=== PATIENT | female | born 1985 | race Caucasian/White ===

== ENCOUNTER 2016-09-24 12:45 | Emergency (ER) | payer BC ==
[2016-09-24] MEDS ORDERED: TETANUS/DIPHTHERIA/PERTUSSIS 0.5 ML SYRINGE IM ONE ×2 (12:53→13:08)
== END 2016-09-24 14:00 | disposition home or self-care (01) ==
DX: S91.331A Puncture wound without foreign body, right foot, initial encounter (principal); W22.8XXA Striking against or struck by other objects, initial encounter; Y92.828 Other wilderness area as the place of occurrence of the external cause; Z23 Encounter for immunization; R03.0 Elevated blood-pressure reading, without diagnosis of hypertension

== ENCOUNTER 2018-03-10 08:47 | Outpatient (CLI) | payer BC, OTHER | END 2018-03-10 08:48 | disposition home or self-care (01) | LOC: LAB.R 08:47 | PROVIDERS: ATTEND Family Medicine | DX: N39.0 Urinary tract infection, site not specified (principal) | CPT/HCPCS: 87086; 87181 ==

== ENCOUNTER 2019-02-01 08:00 | Outpatient (CLI) | payer BC | END 2019-02-01 23:59 | disposition home or self-care (01) | LOC: LAB.R 08:00 | PROVIDERS: ATTEND Family Medicine | DX: N39.0 Urinary tract infection, site not specified (principal) | CPT/HCPCS: 87077; 87086; 87181 ==

== ENCOUNTER 2019-02-10 09:03 | Outpatient (CLI) | payer BC ==
--- NOTE | 2019-02-13 19:01 | Ultrasound Report ---
Reason: UTI'S RECURRENT Procedure Date: 02/10/2019 Accession Number: [id number] / [id number] Procedure: US - Retroperitoneal CPT Code: FULL RESULT: EXAM: RENAL ULTRASOUND EXAM DATE: 02/10/2019 09:56 AM. CLINICAL HISTORY: Recurrent UTIs, one episode of pyelonephritis. COMPARISON: None. TECHNIQUE: Real-time scanning was performed with static images obtained. FINDINGS: Right Kidney: 10.2 x 6.2 x 5.4 cm. No hydronephrosis or shadowing stones. Grossly unremarkable parenchymal echogenicity and cortical thickness. No focal lesion identified. No perinephric fluid. Left Kidney: 10.3 x 7.3 x 5.4 cm. No hydronephrosis or shadowing stones. Grossly unremarkable parenchymal echogenicity and cortical thickness. No focal lesion identified. No perinephric fluid. Bladder: Grossly smooth contour. Bilateral jets seen. The prevoid bladder volume was 729 cc. The postvoid bladder volume was 60 cc after the second voiding attempt. IMPRESSION: 1. Unremarkable renal sonogram. 2. Capacious bladder with postvoid residual of 60 cc after 2 voiding attempts. No focal bladder lesion identified. RADIA
== END 2019-02-10 09:04 | disposition home or self-care (01) ==
LOC: DI 09:03
PROVIDERS: ATTEND Family Medicine
DX: N39.0 Urinary tract infection, site not specified (principal)
CPT/HCPCS: 76770

== ENCOUNTER 2019-02-21 09:51 | Outpatient (CLI) | payer BC ==
[2019-02-21 17:24] LABS: BASOPHILS % (AUTO) 0.5 %; EOSINOPHILS # (AUTO) 0.1 10^3/uL (0.0-0.7); EOSINOPHILS % (AUTO) 1.6 %; HGB - HEMOGLOBIN 14.2 g/dL (12.0-16.0); LYMPHOCYTES % (AUTO) 31.4 %; MEAN CORPUSCULAR HEMOGLOBIN 30.9 pg (27.0-31.0); MEAN CORPUSCULAR HGB CONC 32.1 g/dL (32.0-36.0); MEAN CORPUSCULAR VOLUME 96.3 fL (81.0-99.0); MEAN PLATELET VOLUME 10.6 fL (7.9-10.8); MONOCYTES # (AUTO) 0.6 10^3/uL (0.0-1.0); NEUTROPHILS # (AUTO) 3.6 10^3/uL (1.5-6.6); NEUTROPHILS % (AUTO) 56.2 %; PLT - PLATELET COUNT 318 10^3/uL (130-450); RED CELL DISTRIBUTION WIDTH 12.7 % (12.0-15.0); WHITE BLOOD COUNT 6.4 x10^3/uL (4.8-10.8)
[2019-02-21 17:26] LABS: BILIRUBIN,URINE NEGATIVE (NEGATIVE); GLUCOSE, URINE (UA) NEGATIVE (NEGATIVE); KETONES,URINE (UA) NEGATIVE (NEGATIVE); LEUKOCYTE ESTERASE, URINE NEGATIVE (NEGATIVE); NITRITE,URINE NEGATIVE (NEGATIVE); OCCULT BLOOD,URINE NEGATIVE (NEGATIVE); PH,URINE 6.5 PH (5.0-7.5); PROTEIN,URINE NEGATIVE (NEGATIVE); UROBILINOGEN,URINE 0.2 (NORMAL) E.U./dL (NORMAL)
[2019-02-21 17:27] LABS: CLARITY,URINE CLEAR (CLEAR)
[2019-02-21 17:54] LABS: BACTERIA,URINE Rare /HPF (None Seen); RBC,URINE None Seen /HPF (0-5); SQUAMOUS EPITHELIAL CELL,UR MANY Squamous (<= Few)
[2019-02-21 18:02] LABS: ALBUMIN 4.7 g/dL (3.2-5.5); ALBUMIN/GLOBULIN RATIO 1.5 (1.0-2.2); BILIRUBIN,TOTAL 0.8 mg/dL (0.2-1.0); CALCIUM 9.5 mg/dL (8.5-10.3); CREATININE 0.6 mg/dL (0.4-1.0); TOTAL PROTEIN 7.8 g/dL (6.7-8.2)
== END 2019-02-21 09:52 | disposition home or self-care (01) ==
LOC: LAB.S 09:51
PROVIDERS: ATTEND Family Medicine
DX: N39.0 Urinary tract infection, site not specified (principal)
CPT/HCPCS: 36415; 80053; 81001; 85025; 87086

== ENCOUNTER 2020-01-27 13:28 | Outpatient (CLI) | payer BC | END 2020-01-27 13:29 | disposition home or self-care (01) | LOC: LAB.S 13:28 | PROVIDERS: ATTEND Obstetrics & Gynecology | DX: O99.351 Diseases of the nervous system complicating pregnancy, first trimester (principal); Z79.899 Other long term (current) drug therapy; Z32.01 Encounter for pregnancy test, result positive | CPT/HCPCS: 36415; 80177; 84144; 84702 ==

== ENCOUNTER 2020-02-10 14:36 | Outpatient (CLI) | payer BC ==
--- NOTE | 2020-02-10 17:41 | Ultrasound Report ---
PROCEDURE: OB First Trimester INDICATIONS: POSITIVE TEST OUTSIDE/PRIOR DATING DATA: Last menstrual period (LMP): 12/19/2019. LMP-based estimated date of delivery (JHON): 09/24/2020. First dating scan (date and location): 02/10/2020. Estimated date of delivery (JHON) from first dating scan: 09/25/2020. TECHNIQUE: Real-time scanning was performed of the fetus and maternal pelvic organs, with image documentation. COMPARISON: None for this FINDINGS: Embryo: There is an intrauterine gestational sac seen, with a pole present, which measures 1.2 cm, which corresponds to an estimated gestational age of 7 weeks 3 days. cardiac activity is s een, with a measured heart rate of 146 bpm. Subchronic hemorrhage can be seen superior to the gestati onal sac measuring 5 x 12 x 13 mm. Measurement variability in dating: +/- 4 weeks by LMP, +/- 7 days by mean sac diameter (use before 6 weeks gestation if crown-rump length not able to be measured), +/- 5 days by crown-rump length (6-12 weeks gestation). Maternal organs: Ovaries are within normal limits, with a left ovarian corpus luteum seen.. Limited images through the kidneys demonstrate no hydronephrosis. IMPRESSION: Single live intrauterine . No significant discrepancy is found between the estimated gestational age based upon these images and the estimated gestational age based upon the given date of the last menstrual period. Subchorionic hemorrhage can be seen adjacent to the gestational sac. Close clinical follow-up with serial beta hCG measurements are recommended, as clinically appropriate . Reviewed by: Larry Acosta MD on 02/10/2020 4:40 PM ABRAHAM Approved by: Larry Acosta MD on 02/10/2020 4:40 PM ABRAHAM Station ID: [id number]
== END 2020-02-10 14:37 | disposition home or self-care (01) ==
LOC: DI 14:36
PROVIDERS: ATTEND Obstetrics & Gynecology
DX: Z32.01 Encounter for pregnancy test, result positive (principal)
CPT/HCPCS: 76801

== ENCOUNTER 2020-02-27 08:00 | Outpatient (CLI) | payer BC ==
[2020-02-28 10:26] LABS: BILIRUBIN,URINE NEGATIVE (NEGATIVE); GLUCOSE, URINE (UA) NEGATIVE (NEGATIVE); KETONES,URINE (UA) TRACE mg/dL (NEGATIVE); LEUKOCYTE ESTERASE, URINE NEGATIVE (NEGATIVE); NITRITE,URINE NEGATIVE (NEGATIVE); OCCULT BLOOD,URINE NEGATIVE (NEGATIVE); PROTEIN,URINE NEGATIVE (NEGATIVE); UROBILINOGEN,URINE 0.2 (NORMAL) E.U./dL (NORMAL)
[2020-02-28 10:28] LABS: CLARITY,URINE SL. CLOUDY (CLEAR)
[2020-02-28 10:36] LABS: AMORPHOUS SEDIMENT,UR Few /LPF; BACTERIA,URINE Few /HPF (None Seen); RBC,URINE 0-5 /HPF (0-5); SQUAMOUS EPITHELIAL CELL,UR MANY Squamous (<= Few)
[2020-02-28 10:37] LABS: CRYSTALS,URINE 3-5 Calcium Oxalate /LPF
== END 2020-02-27 23:59 | disposition home or self-care (01) ==
LOC: LAB.R 08:00
PROVIDERS: ATTEND Obstetrics & Gynecology
DX: Z36.89 Encounter for other specified antenatal screening (principal)
CPT/HCPCS: 81001; 87086

== ENCOUNTER 2020-03-05 14:11 | Outpatient (CLI) | payer BC | END 2020-03-05 14:12 | disposition home or self-care (01) | LOC: LAB.S 14:11 | DX: O99.351 Diseases of the nervous system complicating pregnancy, first trimester (principal); G40.409 Other generalized epilepsy and epileptic syndromes, not intractable, without status epilepticus; G40.909 Epilepsy, unspecified, not intractable, without status epilepticus; Z79.899 Other long term (current) drug therapy | CPT/HCPCS: 36415; 80177 ==

== ENCOUNTER 2020-03-26 14:19 | Outpatient (CLI) | payer BC ==
[2020-03-26 19:57] LABS: BASOPHILS % (AUTO) 0.3 %; EOSINOPHILS # (AUTO) 0.1 10^3/uL (0.0-0.7); EOSINOPHILS % (AUTO) 0.9 %; HGB - HEMOGLOBIN 12.5 g/dL (12.0-16.0); LYMPHOCYTES # (AUTO) 1.8 10^3/uL (1.5-3.5); MEAN CORPUSCULAR HEMOGLOBIN 31.3 pg (27.0-31.0); MEAN CORPUSCULAR HGB CONC 34.2 g/dL (32.0-36.0); MEAN CORPUSCULAR VOLUME 91.5 fL (81.0-99.0); MEAN PLATELET VOLUME 10.4 fL (7.9-10.8); MONOCYTES # (AUTO) 0.9 10^3/uL (0.0-1.0); MONOCYTES % (AUTO) 9.2 %; NEUTROPHILS # (AUTO) 6.5 10^3/uL (1.5-6.6); NEUTROPHILS % (AUTO) 70.3 %; PLT - PLATELET COUNT 329 10^3/uL (130-450); RED CELL DISTRIBUTION WIDTH 12.5 % (12.0-15.0); WHITE BLOOD COUNT 9.2 x10^3/uL (4.8-10.8)
[2020-03-28 13:29] LABS: HEPATITIS B SURFACE ANTIGEN NON-REACTIVE (NON-REACTIVE); HEPATITIS C ANTIBODY NON-REACTIVE (NON-REACTIVE)
[2020-03-28 13:42] LABS: HIV AG/AB 4TH GEN NON-REACTIVE (NON-REACTIVE)
== END 2020-03-26 14:20 | disposition home or self-care (01) ==
LOC: LAB.S 14:19
PROVIDERS: ATTEND Obstetrics & Gynecology
DX: O09.90 Supervision of high risk pregnancy, unspecified, unspecified trimester (principal); Z36.89 Encounter for other specified antenatal screening; Z3A.00 Weeks of gestation of pregnancy not specified
CPT/HCPCS: 36415; 81220; 81243; 81329; 81599; 85025; 86592; 86762; 86803; 86850; 86900; 86901; 87340; 87389

== ENCOUNTER 2020-04-03 15:17 | Outpatient (CLI) | payer BC | END 2020-04-03 15:18 | disposition home or self-care (01) | LOC: LAB.S 15:17 | PROVIDERS: ATTEND Obstetrics & Gynecology | DX: O09.90 Supervision of high risk pregnancy, unspecified, unspecified trimester (principal); O99.351 Diseases of the nervous system complicating pregnancy, first trimester; G40.409 Other generalized epilepsy and epileptic syndromes, not intractable, without status epilepticus; Z79.899 Other long term (current) drug therapy; Z3A.00 Weeks of gestation of pregnancy not specified | CPT/HCPCS: 36415; 80177; 81511; 81599 ==

== ENCOUNTER 2020-05-09 15:15 | Outpatient (CLI) | payer BC ==
--- NOTE | 2020-05-10 09:32 | Ultrasound Report ---
PROCEDURE: OB Detailed Eval INDICATIONS: SCREENING OUTSIDE/PRIOR DATING DATA: Last menstrual period (LMP): 12/19/2019. LMP-based estimated date of delivery (JHON): 09/24/2020. First dating scan (date and location): 02/10/2020. Estimated date of delivery (JHON) from first dating scan: 09/25/2020. TECHNIQUE: Real-time scanning was performed of the fetus, with image documentation and biometric measurements. Endovaginal scanning: Not performed. COMPARISON: OB ultrasound 02/10/2020. FINDINGS: General: A single living intrauterine gestation is present. Presentation: Variable. Placenta: Placental position is anterior, without previa. Amniotic fluid index: 16 cm, normal for gestational age. Largest pocket 4.4 cm. heart rate: 149 beats per minute. Maternal cervical canal: 5.4 cm long; normal length is 2.5 cm or more. biometrics: Biparietal diameter: 4.7 cm, 20 weeks 1 day Head circumference: 18.1 cm, 20 weeks 3 days Abdominal circumference: 14.9 cm, 20 weeks 4 days Femur length: 3.4 cm, 20 weeks 4 days Estimated gestational age from initial scan: 20 weeks 1 day Composite gestational age from present scan: 20 weeks 1 day Estimated weight and percentile: 350 g, 59th percentile Measurement variability in biometric dating: +/- 10 days from 12-20 weeks gestation, +/- 2 weeks from 20-30 weeks gestation, +/- 3 weeks at 30 weeks gestation or later. Anatomic survey: Neuro: Ventricles are normal at less than 10 mm. Cisterna magna is normal at 3-11 mm. Cerebellum i s normal in size and morphology. Nuchal skin fold: Not well seen. Face: Nose and lips, facial profile are normal. Spine: No evidence for spina bifida. Suboptimal visualization of the spine. Heart: Normal ventricular outflow tracts. Four-chamber heart view is limited. Diaphragm: Diaphragm is intact. Stomach: Left-sided stomach is present. Kidneys: No hydronephrosis. Normal is less than 5 mm in 2nd trimester, less than 7 mm in 3rd trimester. Cord: 3 vessel cord has orthotopic insertion. Bladder: Normal in size. Extremities: All 4 extremities are visualized. Maternal adnexal regions are unremarkable. IMPRESSION: 1. Roach living intrauterine at 20 weeks 1 day based on today's ultrasound. This is con cordant with the first trimester ultrasound. There is expected interval growth. 2. Normal placenta and amniotic fluid. 3. Nuchal region is not well seen. Spine is suboptimally visualized. Four-chamber heart view is not w ell seen. Other anatomic structures are normal. -Recommend follow-up OB ultrasound to complete the anatomic survey. Reviewed by: Krystian Jaquez MD on 05/10/2020 9:31 AM PST Approved by: Krystian Jaquez MD on 05/10/2020 9:31 AM PST Station ID: [id number]
== END 2020-05-09 15:16 | disposition home or self-care (01) ==
LOC: DI 15:15
PROVIDERS: ATTEND Obstetrics & Gynecology
DX: Z36.89 Encounter for other specified antenatal screening (principal)

== ENCOUNTER 2020-05-16 15:41 | Outpatient (CLI) | payer BC | END 2020-05-16 15:42 | disposition home or self-care (01) | LOC: LAB.S 15:41 | PROVIDERS: ATTEND Psychiatry & Neurology Neurology | DX: O99.351 Diseases of the nervous system complicating pregnancy, first trimester (principal); G40.409 Other generalized epilepsy and epileptic syndromes, not intractable, without status epilepticus; Z79.899 Other long term (current) drug therapy | CPT/HCPCS: 36415; 80177 ==

== ENCOUNTER 2020-06-13 16:57 | Outpatient (CLI) | payer BC ==
--- NOTE | 2020-06-14 13:04 | Ultrasound Report ---
PROCEDURE: OB F/U or Repeat INDICATIONS: SUPERVISION OF HIGH RISK - INCOMP FAS OUTSIDE/PRIOR DATING DATA: Last menstrual period (LMP): 12/19/2019. LMP-based estimated date of delivery (JHON): 09/24/2020. First dating scan (date and location): 02/10/2020. Estimated date of delivery (JHON) from first dating scan: 09/25/2020. TECHNIQUE: Real-time scanning was performed of the fetus, with image documentation and biometric measurements. Endovaginal scanning: Not needed COMPARISON: Earlier OB ultrasound studies same . FINDINGS: General: A single living intrauterine gestation is present. Presentation: Transverse , had right Placenta: Placental position is anterior, without previa. Amniotic fluid index: 11.3 cm, normal for gestational age. heart rate: Normal. Maternal cervical canal: 5.6 cm long; normal length is 2.5 cm or more. Other: Improved visualization of the spine is now normal, four-chamber view of heart is normal.. IMPRESSION: Completion of anatomic survey, no abnormality found. The delivery date is projecte d to be centered on 09/25/2020. Reviewed by: Robert Chino MD on 06/14/2020 1:03 PM PST Approved by: Robert Chino MD on 06/14/2020 1:03 PM PST Station ID: [id number]
== END 2020-06-13 16:58 | disposition home or self-care (01) ==
LOC: DI 16:57
PROVIDERS: ATTEND Obstetrics & Gynecology
DX: O09.90 Supervision of high risk pregnancy, unspecified, unspecified trimester (principal)

== ENCOUNTER 2020-06-24 11:37 | Outpatient (CLI) | payer BC | END 2020-06-24 11:38 | disposition home or self-care (01) | LOC: LAB.S 11:37 | PROVIDERS: ATTEND Psychiatry & Neurology Neurology | DX: G40.409 Other generalized epilepsy and epileptic syndromes, not intractable, without status epilepticus (principal); O99.351 Diseases of the nervous system complicating pregnancy, first trimester; G40.909 Epilepsy, unspecified, not intractable, without status epilepticus; Z79.899 Other long term (current) drug therapy | CPT/HCPCS: 36415; 80177 ==

== ENCOUNTER 2020-07-02 09:14 | Outpatient (CLI) | payer BC ==
[2020-07-02 15:42] LABS: MEAN CORPUSCULAR HEMOGLOBIN 30.4 pg (27.0-31.0); MEAN CORPUSCULAR HGB CONC 32.2 g/dL (32.0-36.0); MEAN CORPUSCULAR VOLUME 94.4 fL (81.0-99.0); MEAN PLATELET VOLUME 10.1 fL (7.9-10.8); RED BLOOD COUNT 3.95 10^6/uL (4.20-5.40); RED CELL DISTRIBUTION WIDTH 12.9 % (12.0-15.0); WHITE BLOOD COUNT 11.5 x10^3/uL (4.8-10.8)
== END 2020-07-02 09:15 | disposition home or self-care (01) ==
LOC: LAB.S 09:14
PROVIDERS: ATTEND Obstetrics & Gynecology
DX: O09.90 Supervision of high risk pregnancy, unspecified, unspecified trimester (principal); Z36.89 Encounter for other specified antenatal screening
CPT/HCPCS: 36415; 82950; 85025; 85027

== ENCOUNTER 2020-07-27 10:01 | Outpatient (CLI) | payer BC | END 2020-07-27 10:02 | disposition home or self-care (01) | LOC: LAB.S 10:01 | PROVIDERS: ATTEND Psychiatry & Neurology Neurology | DX: G40.409 Other generalized epilepsy and epileptic syndromes, not intractable, without status epilepticus (principal); O99.351 Diseases of the nervous system complicating pregnancy, first trimester; G40.909 Epilepsy, unspecified, not intractable, without status epilepticus; Z79.899 Other long term (current) drug therapy | CPT/HCPCS: 36415; 80177 ==

== ENCOUNTER 2020-08-23 14:26 | Outpatient (CLI) | payer BC | END 2020-08-23 14:27 | disposition home or self-care (01) | LOC: LAB.S 14:26 | PROVIDERS: ATTEND Psychiatry & Neurology Neurology | DX: O99.351 Diseases of the nervous system complicating pregnancy, first trimester (principal); G40.409 Other generalized epilepsy and epileptic syndromes, not intractable, without status epilepticus; Z79.899 Other long term (current) drug therapy | CPT/HCPCS: 36415; 80177 ==

== ENCOUNTER 2020-09-27 08:00 | Outpatient (CLI) | payer BC ==
[2020-09-28 14:16] LABS: TOTAL PROTEIN,URINE TIMED < 6 mg/dL; TOTAL VOLUME 24HRS,URINE 3200 mL
== END 2020-09-27 23:59 | disposition home or self-care (01) ==
LOC: LAB.R 08:00
PROVIDERS: ATTEND Midwife
DX: Z34.03 Encounter for supervision of normal first pregnancy, third trimester (principal)
CPT/HCPCS: 84156

== ENCOUNTER 2020-09-30 11:09 | Inpatient (IN) | payer BC ==
[2020-09-30] MEDS ORDERED: CARBOPROST TROMETHAMINE 250 MCG/ML AMP IM PRN (11:18)
[2020-09-30] MEDS ORDERED: miSOPROStoL 200 MCG TABLET BC PRN (11:18)
[2020-09-30] MEDS ORDERED: OXYTOCIN/SODIUM CHLORIDE 500 ML IV PRN (11:18)
[2020-09-30] MEDS ORDERED: TRANEXAMIC ACID IN NACL 1,000 MG/100 ML BAG IV PRN (11:18)
[2020-09-30] MEDS ORDERED: SODIUM CHLORIDE FLUSH 0.9% 10 ML SYRINGE IVP PRN ×2 (11:18→13:47)
[2020-09-30] MEDS ORDERED: METHYLERGONOVINE 0.2 MG/ML VIAL IM PRN (11:18)
[2020-09-30] MEDS ORDERED: OXYTOCIN 10 UNIT/ML VIAL IM PRN (11:18)
[2020-09-30] MEDS ORDERED: LIDOCAINE-MPF 1% 30 ML VIAL ID PRN (11:18)
[2020-09-30] MEDS ORDERED: LACTATED RINGERS 1,000 ML IV SCH ×2 (12:00→19:00)
[2020-09-30 12:05] LABS: BASOPHILS # (AUTO) 0.1 10^3/uL (0.0-0.1); BASOPHILS % (AUTO) 0.2 %; HCT - HEMATOCRIT 37.1 % (37.0-47.0); HGB - HEMOGLOBIN 12.6 g/dL (12.0-16.0); LYMPHOCYTES # (AUTO) 1.7 10^3/uL (1.5-3.5); LYMPHOCYTES % (AUTO) 6.8 %; MEAN CORPUSCULAR HEMOGLOBIN 29.4 pg (27.0-31.0); MEAN CORPUSCULAR VOLUME 86.7 fL (81.0-99.0); MONOCYTES % (AUTO) 7.8 %; NEUTROPHILS # (AUTO) 21.3 10^3/uL (1.5-6.6); NEUTROPHILS % (AUTO) 84.3 %; PLT - PLATELET COUNT 321 10^3/uL (130-450); RED BLOOD COUNT 4.28 10^6/uL (4.20-5.40); RED CELL DISTRIBUTION WIDTH 12.9 % (12.0-15.0); WHITE BLOOD COUNT 25.3 x10^3/uL (4.8-10.8)
[2020-09-30 12:11] LABS: SLIDE REVIEW? Indicated
[2020-09-30 12:36] LABS: ALBUMIN 3.7 g/dL (3.2-5.5); ALBUMIN/GLOBULIN RATIO 1.1 (1.0-2.2); BILIRUBIN,TOTAL 0.5 mg/dL (0.2-1.0); CALCIUM 9.6 mg/dL (8.5-10.3); CREATININE 0.7 mg/dL (0.4-1.0); POTASSIUM 3.5 mmol/L (3.5-5.0); TOTAL PROTEIN 7.2 g/dL (6.7-8.2)
[2020-09-30 13:01] LABS: RBC MORPHOLOGY (MULTIPLE) 2+ ANISOCYTOSIS (NORMAL)
[2020-09-30] MEDS ORDERED: ROPIVACAINE 0.2% 200 MG/100 ML BAG EP ONE (13:06)
[2020-09-30] MEDS ORDERED: LORazepam 2 MG/ML VIAL IVP PRN (13:10)
--- NOTE | 2020-09-30 13:11 | ANESTHESIA ---
Pre-Anesthesia VS, & Labs - Diagnosis Active labor - Procedure vaginal delivery Vital Signs: Temp Pulse Resp BP Pulse Ox 36.8 C 100 18 134/77 H 09/30/20 11:54 09/30/20 11:54 09/30/20 11:54 09/30/20 11:54 Height: 5 ft 9 in - NPO Other (labor) - Is Patient ?: Yes - Lab Results Current Lab Results: Laboratory Tests 09/30/20 12:16: Sodium 135, Potassium 3.5, Chloride 104, Carbon Dioxide 18 L, Anion Gap 13.0, BUN 7, Creatinine 0.7, Estimated GFR (MDRD) 96, Glucose 150 H, Calcium 9.6, Total Bilirubin 0.5, AST 20, ALT 14, Alkaline Phosphatase 124 H, Total Protein 7.2, Albumin 3.7, Globulin 3.5, Albumin/Globulin Ratio 1.1 09/30/20 11:40: WBC 25.3 H, RBC 4.28, Hgb 12.6, Hct 37.1, MCV 86.7, MCH 29.4, MCHC 34.0, RDW 12.9, Plt Count 321, MPV 11.0 H, Neut # (Auto) 21.3 H, Lymph # (Auto) 1.7, [place] # (Auto) 2.0 H, Eos # (Auto) 0.0, Baso # (Auto) 0.1, Absolute Nucleated RBC 0.00, Nucleated RBC % 0.0, Manual Slide Review Indicated, RBC Morph Micro Appear 2+ ANISOCYTOSIS Fish Bones: 09/30/20 11:40 09/30/20 12:16 Home Medications and Allergies Active Medications Carboprost Tromethamine (Carboprost Tromethamine 250 Mcg/Ml Amp) 250 mcg IM Q15M PRN PRN Reason: Step 4: Hemorrhage protocol Stop: 10/05/20 11:19 Oxytocin/Sodium Chloride (Pitocin/Sodium Chloride) 500 mls @ 999 mls/hr IV PRN PRN; Protocol PRN Reason: POST- HEMORR PREVENTION Stop: 10/05/20 11:19 Tranexamic Acid (Tranexamic 1,000 Mg/100ml-Nacl) 1,000 mg in 100 mls @ 600 mls/hr IV .ONCE PRN PRN Reason: EBL >1200mL and within 3hr Stop: 10/05/20 11:19 Lactated Ringer's (Lr) 1,000 mls @ 150 mls/hr IV .Q6H40M [facility] Lidocaine HCl (Lidocaine-Mpf 1% 30 Ml Vial) 30 ml ID .ONCE PRN PRN Reason: PERINEAL REPAIR Stop: 10/05/20 11:19 Methylergonovine Maleate (Methylergonovine 0.2 Mg/Ml Vial) 0.2 mg IM .ONCE PRN PRN Reason: Step 2: Hemorrhage protocol Stop: 10/05/20 11:19 Misoprostol (Misoprostol 200 Mcg Tablet) 800 mcg BC .ONCE PRN PRN Reason: Step 3: Hemorrhage protocol Stop: 10/05/20 11:19 Oxytocin (Oxytocin 10 Unit/Ml Vial) 10 unit IM .ONCE PRN PRN Reason: Step one: If no IV access Stop: 10/05/20 11:19 Sodium Chloride (Sodium Chloride Flush 0.9% 10 Ml Syringe) 10 ml IVP PRN PRN PRN Reason: NEEDED PER PROVIDER ORDERS Sodium Chloride (Sodium Chloride Flush 0.9% 10 Ml Syringe) 10 ml IVP 0100,0 900,1700 [facility] Keppra, folic acid, Vit D Allergies/Adverse Reactions: Allergies Allergy/AdvReac Type Severity Reaction Status Date / Time No Known Drug Allergies Allergy Verified 09/24/16 12:52 Anes History & Medical History - Anesthetic History Family history of Anesthesia Complications: Denies Family history of Malignant Hyperthermia: Denies - Medical History Cardiovascular: reports: None Pulmonary: reports: None Gastrointestinal: reports: None Urinary: reports: None Neuro: reports: Seizure disorder (last seizure was 15 years ago) Musculoskeletal: reports: None Endocrine/Autoimmune: reports: None Blood Disorders: reports: None Skin: reports: None Smoking Status: Former smoker (quit 8 years ago) Psychosocial: reports: No issues indicated History of Cancer?: No - Obstetrical History : 4 Parity: 0 Events: reports: None Complications: reports: None - Other History Other History: Ruptured at 0200 09/29 Exam General: Alert, Oriented x3, Cooperative, No acute distress Dental: WNL Mouth Openin Fingerbreadth Neck Mobility: Normal Mallampati classification: I Thyromental Distance: 4-6 cm Mental/Cognitive Status: Alert/Oriented X3, Normal for patient Plan Anesthesia Type: Epidural Consent for Procedure(s) Verified and Reviewed: Yes Code Status: Attempt Resuscitation ASA classification: 2-Mild systemic disease Is this case an emergency?: No
[2020-09-30] MEDS ORDERED: ePHEDrine 50 MG/ML VIAL IVP PRN (13:12)
[2020-09-30] MEDS ORDERED: NALBUPHINE 10 MG/ML AMP IVP PRN (13:12)
[2020-09-30] MEDS ORDERED: ROPIVACAINE 0.2% 200 MG/100 ML BAG EP PRN (13:12)
[2020-09-30] MEDS ORDERED: NALOXONE 0.4 MG/ML VIAL IVP PRN (13:12)
[2020-09-30] MEDS ORDERED: ONDANSETRON 4 MG/2 ML VIAL IVP PRN (13:12)
--- NOTE | 2020-09-30 13:21 | HISTORY & PHYSICAL EXAMINATION ---
Admit History - Visit Reason Visit Reason: Other (Prolonged ROM) - : 4 Parity: 0 Care: positive: Other Risk/History: positive: Other (Seizure disorder on Keppra) Complications This : positive: Other (prolonged rupture of membranes) Smoking Status: Former smoker (quit 8 years ago) - Mother's Labs GBS: positive: Group B Step Negative - Other Maternal History Other Maternal History: Patient is a 35 yo at 40+6 wga woth prlonged ROM who presents for pain management and labor augmentation. Patient had been followed by [facility] until 28 weeks when she transferred care to [facility]. complicated by hx of seizure disorder. She is on Keppra/levetiracetam which has been managed by Dr. Zeyad Huff at [facility]. She has not had a seizure in many years. her risk profile was low enough that she opted to home . course had been uncomplicated through out course. Patient reports rupture of membranes at 2 am on 09/30/19. Contractions began f requently and then petered out. She progressed to complete and then the contractions stopped. She has been without a fever during the course of labor. She has not had any sleep, which is concerning as sleep deprivation can lower seizure threshold. She took her am dose of Keppra at 6:45 am. She has an elevated WBC at 25 but no febrile temperatures and no fevers reported prior to presentation. No evidence of or maternal tachycardia. GBS negative. 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 SEIZURE DISORDER: Keppra managed by Dr. Zeyad Huff at [facility] with monthly keppra levels -Increased from la 1000 mg QAM and 1250 mg QPM. Level in early was 7.6 on 01/27/20 -Studies have not shown Keppra to have increased risk of congenital defects but will maintain increased folate dosing O pos/Rub imm Genetics screening: Quad wnl -Neg carrier screen for CF/SMA/Fragile X FAS: Girl, anterior placenta. 3VC, 59%ile, spine and cardiac views cleared Influenza: Declined TDAP: at 28 weeks- considering Glucola 127 GBS at 36 weeks- reported as negative HSV: denies Breast pump Rx: given MOD: anticipate Meds/Allgy - Home Medications Home Medications: Ambulatory Orders Medication Instructions Recorded Confirmed cephALEXin [Keflex] 500 mg PO Q6H 7 Days capsule 09/24/16 - Allergies Allergies/Adverse Reactions: Allergies Allergy/AdvReac Type Severity Reaction Status Date / Time No Known Drug Allergies Allergy Verified 09/24/16 12:52 Review of Systems - Other Findings Other Findings: per HPI, otherwise remaining systems are negative. Physical - Abdominal Exam Vital Signs: Temp Pulse Resp BP Pulse Ox 98.2 F 100 18 134/77 H 09/30/20 11:54 09/30/20 11:54 09/30/20 11:54 09/30/20 11:54 Contraction Frequency (min/apart): Q5-10 min Contraction Intensity: positive: Mild to moderate - Monitoring Heart Rate Baseline: 140 mod miranda 15x15 accels no decels Strip Review: positive: Category I - Presentation Presentation: positive: Vertex - Vaginal Exam Membranes: positive: Membranes ruptured Dilation (in cm): 7 cm Effacement (%): 95 Station: positive: -2 Cervical Position: positive: Midposition - Speculum Exam Speculum Exam Performed: positive: No - Other Notes Labor Progress Note/Additional Text: GEN: NAD HEENT: mild facial swelling itherwise NCAT CV: RR, intermttent tachycardia GRAVID: S&NT/ND EXT: WWP PSYCH: appropriate affect NEURO: A&O SVE: AL anteriorly, 3 cm posteriorly, no cervical swelling. No foul smelling fluid. No abnl warmth on exam. Plan for Labor - Plan For Labor Plan for Labor: PROLONGED ROM: -Ruptured > 24 hours GBS negative Afebrile No tachycardia Will augment and continue to anticipate -Augmentation with pitocin -High risk of PPH: T&C for 2 units PRBC Uterotonics readily available HX SEIZURE DISORDER: -On Keppra managed by Dr. Huff at [facility] -Several years since last seizure; deemed low risk by Neurology -Concern for sleep deprivation - Epidural for pain management and allwo for sleep -IF SEIZURE OCCURS AND LAST MORE THAN 5 MINUTE: 1) Check blood sugar 2) Give Ativan/lorazepam 4 mg IV, at a ranet to 2 mg/2 min 3) OK to repeat dose after 5 minutes without resposne Anesthesia aware HTN: Elevated blood pressures at admit, mild range -No PIH symptoms -PIH labs wnl -Cont to monitor PAIN: Desires epidural. OK for epidural from OB standpoint. In-patient care Anticipate
[2020-09-30] MEDS ORDERED: LABETALOL 20 MG/4 ML SYRINGE IVP PRN ×3 (13:47)
[2020-09-30] MEDS ORDERED: NIFEdipine 10 MG CAPSULE PO PRN (13:47)
[2020-09-30] MEDS ORDERED: hydrALAZINE INJ 20 MG/ML VIAL IVP PRN ×2 (13:47)
[2020-09-30] MEDS ORDERED: TERBUTALINE 1 MG/ML VIAL SUBQ PRN (13:47)
[2020-09-30] MEDS ORDERED: METOCLOPRAMIDE 10 MG/2 ML VIAL IVP PRN (13:47)
[2020-09-30] MEDS ORDERED: ACETAMINOPHEN 325 MG TABLET PO SCH (14:00)
[2020-09-30] MEDS ORDERED: SODIUM CHLORIDE FLUSH 0.9% 10 ML SYRINGE IVP SCH ×2 (17:00)
[2020-09-30] MEDS ORDERED: DOCUSATE SODIUM 100 MG CAPSULE PO PRN (18:44)
[2020-09-30] MEDS ORDERED: HYDROCORTISONE 1% CREAM 28 GM TUBE PR PRN (18:44)
[2020-09-30] MEDS ORDERED: ONDANSETRON ODT 4 MG TABLET TL PRN (18:44)
[2020-09-30] MEDS ORDERED: SIMETHICONE CHEW 80 MG TABLET PO PRN (18:44)
--- NOTE | 2020-09-30 18:58 | DELIVERY NOTE ---
Delivery Note - Labor Labor: positive: Augmented by oxytocin - Delivery Method Delivery Method: positive: Spontaneous vaginal delivery - Presentation Presentation: positive: Vertex - Nuchal Cord Nuchal Cord: positive: None - Anesthetic Anesthetic Type: - Amniotic Fluid Description Amniotic Fluid Description: positive: Clear - Laceration Laceration: positive: 2nd degree - Suture Suture Type: positive: Vicryl Suture Size: positive: 3-0 - Delivery Outcome Delivery Outcome: positive: Livebirth - : positive: Placed in direct skin contact with mother, Stimulated, Warmed, [place] used sex: positive: Female - Cord Cord: positive: 3 vessels - Placenta Placenta: positive: Intact, Expressed - Estimated Blood Loss Estimated Blood Loss (in cc): 200 - Post Delivery Events Post Delivery Events: positive: No post delivery events - Delivery Comments (Free Text/Narrative) Delivery Comments (Free Text/Narrative): STAGE I: Patient is a 35 yo admitted at 40+6 wga for labor augmentation. Patient was followed by Portia Scott LM, at the [facility]. Patient presented with ruptured membranes on 09/29/20 at approximately 2 am. She was 1 cm dilated on initial exam. She progressed into labor with castor oil and nipple stimulation. She was reported to be completely dilated at approximately 8 am this morning. She had pushed for about an hour when contractions began to dissipate. She then presented to [facility] for pitocin augmentation. She had rare contractions at presentation to [facility]. Initial exam upon presentation was a 1 cm anterior lip and 3 cm posterior lip. She was afebrile throughout her labor course. GBS negative, antibiotics were not indicated. She opted for pain management with an epidural. Pitocin augmentation was administered, reaching a max dose of 4 mU/min. She was noted to be complete at 0 station at 15:50 per RN exam. STAGE II: Patient labored down and began pushing at 17:28. She pushed well for 18 minutes and delivered a viable female infant from vertex presentation at 17:56. Left shoulder was anterior and was delivered without difficulty. No nuchal cord. Infant was delivered to maternal chest. Cord was clamped x2 and cut once pulsations had ceased. Apgars were 8/9. Weight pending. STAGE III: Placenta delivered at 18:07 with manual expression. It was examined and found to be intact. Peineum was examined and a midline 2nd degree laceration was noted. It was repaired in the usual sterile fashion in layers. Rectal exam was performed given proximity of laceration edge to anal verge. No suture was noted within the rectal vault. Total EBL was 200 cc. Good hemostasis was noted at close of procedure. Procedure was well tolerated and without complication.
[2020-09-30] MEDS: ACETAMINOPHEN 500 MG TABLET PO PRN (20:09)
[2020-09-30] MEDS: IBUPROFEN 600 MG TABLET PO PRN (22:09)
[2020-10-01] MEDS: ACETAMINOPHEN 500 MG TABLET PO PRN (05:49)
[2020-10-01] MEDS: IBUPROFEN 600 MG TABLET PO PRN ×2 (05:50→12:09)
--- NOTE | 2020-10-01 11:25 | Discharge Plan ---
Discharge Plan Problem Reviewed?: Yes Disposition: Home, Self Care Condition: Good Activity Restrictions: Additional Comments (Call for: -Fever greater than 100.5 -Pain that does not improve with pain medication -Heavy bleeding in which you are soaking a pad an hour for 2 hours in a row) Shower Restrictions: No (No tub baths or hot tubs for 4 weeks) Additional Instructions or Follow Up instructions: Ibuprofen 600 mg by mouth every 6 hours as needed for pain Acetaminophen 500-1000 mg by mouth every 8 hours as needed for pain Docusate 100-200 mg by mouth twice a day as needed for constipation No Smoking: If you smoke, Please STOP! Call for help. Follow-up with: Katrina Ag MD [Provider Admit Priv/Credential] -
--- NOTE | 2020-10-01 11:28 | PROVIDER PROGRESS NOTE ---
Subjective - Prog Note Date Prog Note Date: 10/01/20 Prog Note Time: 08:30 - Subjective Subjective: Patient has been doing well. BF going well. Voiding. Tolerating po. Ambulating. Minimal lochia this am. Feels ready for discharge. Objective - Vital Signs/Intake & Output Reviewed Vital Signs: Yes Vital Signs: Vital Signs x48h Temp Pulse Resp BP Pulse Ox 10/01/20 05:49 98.1 F 108 H 16 105/59 L 100 Intake & Output: Intake & Output 09/28/20 09/29/20 09/30/20 10/01/20 23:59 23:59 23:59 23:59 Intake Total 3320.0 Output Total 2200 Balance 1120.0 - Objective General Appearance: positive: No acute distress Eyes Bilateral: positive: Normal inspection Respiratory: positive: No respiratory distress, Breath sounds nml Cardiovascular: positive: Regular rate & rhythm Abdomen: positive: Non-tender, No distention, Other (FF below umbi) Extremities: positive: Non-tender Neurologic/Psychiatric: positive: Oriented x3 - Lab Results Fish Bones: 09/30/20 11:40 09/30/20 12:16 Other Labs: Lab Results x24hrs 09/30/20 09/30/20 09/30/20 Range/Units 12:16 12:16 11:40 WBC 25.3 H (4.8-10.8) x10^3/uL RBC 4.28 (4.20-5.40) 10^6/uL Hgb 12.6 (12.0-16.0) g/dL Hct 37.1 (37.0-47.0) % MCV 86.7 (81.0-99.0) fL MCH 29.4 (27.0-31.0) pg MCHC 34.0 (32.0-36.0) g/dL RDW 12.9 (12.0-15.0) % Plt Count 321 (130-450) 10^3/uL MPV 11.0 H (7.9-10.8) fL Neut # (Auto) 21.3 H (1.5-6.6) 10^3/uL Lymph # (Auto) 1.7 (1.5-3.5) 10^3/uL [place] # (Auto) 2.0 H (0.0-1.0) 10^3/uL Eos # (Auto) 0.0 (0.0-0.7) 10^3/uL Baso # (Auto) 0.1 (0.0-0.1) 10^3/uL Absolute Nucleated RBC 0.00 x10^3/uL Nucleated RBC % 0.0 /100WBC Manual Slide Review Indicated RBC Morph Micro Appear 2+ ANISOCYTOSIS (NORMAL) Sodium 135 (135-145) mmol/L Potassium 3.5 (3.5-5.0) mmol/L Chloride 104 (101-111) mmol/L Carbon Dioxide 18 L (21-32) mmol/L Anion Gap 13.0 (6-13) BUN 7 (6-20) mg/dL Creatinine 0.7 (0.4-1.0) mg/dL Estimated GFR (MDRD) 96 (>89) Glucose 150 H (70-100) mg/dL Calcium 9.6 (8.5-10.3) mg/dL Total Bilirubin 0.5 (0.2-1.0) mg/dL AST 20 (10-42) IU/L ALT 14 (10-60) IU/L Alkaline Phosphatase 124 H (42-121) IU/L Total Protein 7.2 (6.7-8.2) g/dL Albumin 3.7 (3.2-5.5) g/dL Globulin 3.5 (2.1-4.2) g/dL Albumin/Globulin Ratio 1.1 (1.0-2.2) Blood Type O POSITIVE Antibody Screen NEGATIVE Crossmatch IS Only See Detail Assessment/Plan - Problem List (1) Vaginal delivery Impression: PPD #1: Doing well Meeting goals for DC Rh positive DC pending clearance of Routine instructions given
[2020-10-01 20:28] VITALS: BP 111/69
--- NOTE | 2020-10-01 20:31 | Labor Flowsheet ---
Labor Flowsheet Datetime Report Generated by CPN: 10/01/2020 20:31 Datetime: 10/01/2020 11:58 VITAL SIGNS NBP Sys/Zeynep/Mean (mmHg): 108 : 67 : 76 Pulse: 101 Datetime: 09/30/2020 19:12 Membranes Ruptured Date/Time: 09/29/2020 02:00 Membranes Rupture Method: Spontaneous Amniotic Fluid Color: Clear Datetime: 09/30/2020 18:53 I/O Interventions: [place] Discontinued Datetime: 09/30/2020 18:45 Stage of : Recovery Datetime: 09/30/2020 18:04 Temperature (C): 37.3 Datetime: 09/30/2020 18:01 LaborFlag: Labor Datetime: 09/30/2020 18:00 SpO2 (%): 98 Datetime: 09/30/2020 17:56 UTERINE ACTIVITY Monitor Mode: External Frequency (min): 2-3 Quality: Strong Duration (sec): 60 Pattern: Normal: <= 5 Contractions in 10 Minutes Resting Tone (Palpate): Relaxed Comments: pt pushing, FHT heard 130s-140s in between pushing Datetime: 09/30/2020 17:45 ASSESSMENT A Monitor Mode: Telemetry FHR Baseline Rate : 145 FHR Baseline Changes: No Baseline Change Variability: Moderate 6-25 bpm Accelerations: 15X15 Decelerations: None Category: Category I PATIENT CARE Oxygen Method: Room Air Datetime: 09/30/2020 17:28 STAGE 2 Pushing: Urge to Push Pushing Position: Pushing with Contractions Pushing Progress: Descent with Pushing Datetime: 09/30/2020 17:25 VAGINAL EXAM Dilatation (cm): 10.0 Effacement (%): 100 Station: 2 Exam by: dr bal Datetime: 09/30/2020 17:16 Pain Assessment Comments: pressure feeling every now and then. stool present. pt cleaned up Patient Position/Activity: Left Lateral Patient Care Comments: peanut ball Datetime: 09/30/2020 16:32 Monitor Interventions for FHR: Ultrasound Adjusted Datetime: 09/30/2020 16:30 Strip Reviewed by: KH COMMUNICATION Communication: Call/Page Placed to Provider Provider Notified (Name): Dr. Pendleton Notification Reason: Status Update Communication Comments: Notified MD of vag exam results. Also notified that when sitting pt up to labor down, pt had episode of tachycardia to 136 and decrease in BP to 98/52, No efffect on baby not ed. Pt repositioned to semi fowlers position. Datetime: 09/30/2020 16:29 Respirations: 16 Datetime: 09/30/2020 16:01 Monitor Interventions for UA: [place] Adjusted Pitocin Checklist: Uterus Palpates Soft between Contractions Datetime: 09/30/2020 15:58 Vaginal Bleeding: Normal Show Vaginal Exam Comments: small amount of capit noted Datetime: 09/30/2020 15:53 Stage 2 Comments: Pt complete/-2 Datetime: 09/30/2020 15:30 Pain Presence: None/Denies Datetime: 09/30/2020 14:50 MEDICATIONS Pitocin (milliunits): Increased to @ 4 Datetime: 09/30/2020 13:31 PAIN Pain Scale: 4 Pain Type: Cramping Pain Location: Abdomen Pain Relief Measures: Epidural Given Pain Coping: Breathing Through Contractions Comfort Measures: Breathing/Relaxation; Coaching Datetime: 09/30/2020 13:26 Epidural Procedure: Completed Datetime: 09/30/2020 13:20 ANESTHESIA Anesthesia Plans: Epidural Epidural Positioning: Sitting Datetime: 09/30/2020 13:17 PROCEDURE TIME OUT Procedure Type: Verbal Procedure Verify: Correct Patient Identity; Accurate Procedure Consent Form; Agreement on Procedure to be Done; Correct Patient Position
== END 2020-10-01 20:11 | disposition home or self-care (01) | DRG 806 ==
LOC: WFO 11:09 → FBP 11:10 → WFO 11:17 → FBP 11:18
PROVIDERS: ADMIT Obstetrics & Gynecology; ATTEND Obstetrics & Gynecology
PROC: 10E0XZZ Delivery of Products of Conception, External Approach (ICD-10-PCS; principal; 2020-09-30)
PROC: 0KQM0ZZ Repair Perineum Muscle, Open Approach (ICD-10-PCS; 2020-09-30)
DX: O42.12 Full-term premature rupture of membranes, onset of labor more than 24 hours following rupture (principal); O99.354 Diseases of the nervous system complicating childbirth; Z37.0 Single live birth; O70.1 Second degree perineal laceration during delivery; G40.909 Epilepsy, unspecified, not intractable, without status epilepticus; Z3A.40 40 weeks gestation of pregnancy; Z20.822 Contact with and (suspected) exposure to COVID-19
CPT/HCPCS: 80053; 85025; 86850; 86900; 86901; 86920; A9270; J7120

== ENCOUNTER 2020-10-17 12:51 | Outpatient (CLI) | payer BC | END 2020-10-17 12:52 | disposition home or self-care (01) | LOC: LAB.S 12:51 | PROVIDERS: ATTEND Psychiatry & Neurology Neurology | DX: O99.351 Diseases of the nervous system complicating pregnancy, first trimester (principal); G40.409 Other generalized epilepsy and epileptic syndromes, not intractable, without status epilepticus; Z79.899 Other long term (current) drug therapy | CPT/HCPCS: 36415; 80177 ==

== ENCOUNTER 2023-11-08 10:53 | Outpatient (CLI) | payer BC ==
[2023-11-08 14:51] LABS: BASOPHILS % (AUTO) 0.5 %; EOSINOPHILS # (AUTO) 0.1 10^3/uL (0.0-0.7); EOSINOPHILS % (AUTO) 0.8 %; HCT - HEMATOCRIT 41.8 % (37.0-47.0); HGB - HEMOGLOBIN 13.5 g/dL (12.0-16.0); LYMPHOCYTES # (AUTO) 2.3 10^3/uL (1.5-3.5); LYMPHOCYTES % (AUTO) 36.6 %; MEAN CORPUSCULAR HEMOGLOBIN 29.5 pg (27.0-31.0); MEAN CORPUSCULAR HGB CONC 32.3 g/dL (32.0-36.0); MEAN CORPUSCULAR VOLUME 91.5 fL (81.0-99.0); MEAN PLATELET VOLUME 9.9 fL (7.9-10.8); MONOCYTES # (AUTO) 0.5 10^3/uL (0.0-1.0); MONOCYTES % (AUTO) 8.1 %; NEUTROPHILS # (AUTO) 3.3 10^3/uL (1.5-6.6); NEUTROPHILS % (AUTO) 53.8 %; PLT - PLATELET COUNT 347 10^3/uL (130-450); RED BLOOD COUNT 4.57 10^6/uL (4.20-5.40); RED CELL DISTRIBUTION WIDTH 12.8 % (12.0-15.0); WHITE BLOOD COUNT 6.2 x10^3/uL (4.8-10.8)
[2023-11-08 15:41] LABS: THYROID STIMULATING HORMONE 1.14 uIU/mL (0.34-5.60)
[2023-11-08 15:42] LABS: ALBUMIN 4.6 g/dL (3.2-5.5); ALBUMIN/GLOBULIN RATIO 1.8 (1.0-2.2); ALKALINE PHOSPHATASE 29 IU/L (42-121); ALT ALANINE AMINOTRANSFERASE 10 IU/L (10-60); AST ASPARTATE AMINOTRANSFERASE 10 IU/L (10-42); BILIRUBIN,TOTAL 0.5 mg/dL (0.2-1.0); BUN - BLOOD UREA NITROGEN 11 mg/dL (6-20); CALCIUM 9.7 mg/dL (8.5-10.3); CARBON DIOXIDE - CO2 28 mmol/L (21-32); CHLORIDE 102 mmol/L (101-111); CREATININE 0.6 mg/dL (0.6-1.3); CRP - C-REACTIVE PROTEIN < 0.5 mg/dL (<0.5); GFR - MDRD 112 (>89); GLUCOSE 92 mg/dL (74-104); MAGNESIUM 2.1 mg/dL (1.7-2.3); POTASSIUM 3.8 mmol/L (3.5-4.5); SODIUM 136 mmol/L (135-145); TOTAL PROTEIN 7.2 g/dL (6.4-8.9)
== END 2023-11-08 10:54 | disposition home or self-care (01) ==
LOC: LAB.S 10:53
PROVIDERS: ATTEND Registered Nurse
DX: M62.830 Muscle spasm of back (principal); G44.52 New daily persistent headache (NDPH); R41.89 Other symptoms and signs involving cognitive functions and awareness; R11.0 Nausea
CPT/HCPCS: 36415; 80053; 83735; 84443; 85025; 86140

== ENCOUNTER 2023-11-09 16:10 | Outpatient (CLI) | payer BC ==
--- NOTE | 2023-11-09 17:01 | CT Report ---
PROCEDURE: Head WO INDICATIONS: TRAPEZIUS MUSCLE SPASM, DAILY HEADACHE TECHNIQUE: Noncontrast 4.5 mm thick angled axial sections acquired from the foramen magnum to the vertex. For r adiation dose reduction, the following was used: automated exposure control, adjustment of mA and/or kV according to patient size. COMPARISON: None. FINDINGS: Image quality: Excellent. CSF spaces: Basal cisterns are patent. No extra-axial fluid collections. Ventricles are normal in size and shape. Brain: No midline shift. No intracranial masses or hemorrhage. Mccloud-white matter interface is norm al. Skull and face: Calvarium and visualized facial bones are intact, without suspicious lesions. Sinuses: Visualized sinuses and mastoids are clear. IMPRESSION: No imaging explanation is found for the patient's presenting symptoms. To the limits of this noncontrast study, no findings of masses or mass effect can be seen. Reviewed by: Larry Acosta MD on 11/09/2023 4:00 PM ABRAHAM Approved by: Larry Acosta MD on 11/09/2023 4:00 PM MSVARUN Station ID: [id number]
== END 2023-11-09 16:11 | disposition home or self-care (01) ==
LOC: DI 16:10
PROVIDERS: ATTEND Registered Nurse
DX: M62.830 Muscle spasm of back (principal); G44.52 New daily persistent headache (NDPH); R41.89 Other symptoms and signs involving cognitive functions and awareness; R11.0 Nausea

== ENCOUNTER 2023-12-08 08:00 | Outpatient (CLI) | payer BC ==
[2023-12-08 16:53] LABS: BILIRUBIN,URINE NEGATIVE (NEGATIVE); GLUCOSE, URINE (UA) NEGATIVE (NEGATIVE); KETONES,URINE (UA) TRACE mg/dL (NEGATIVE); LEUKOCYTE ESTERASE, URINE NEGATIVE (NEGATIVE); NITRITE,URINE NEGATIVE (NEGATIVE); OCCULT BLOOD,URINE NEGATIVE (NEGATIVE); PROTEIN,URINE NEGATIVE (NEGATIVE); UROBILINOGEN,URINE 0.2 (NORMAL) E.U./dL (NORMAL)
[2023-12-08 16:56] LABS: CLARITY,URINE CLEAR (CLEAR)
[2023-12-08 17:20] LABS: BACTERIA,URINE Few /HPF (None Seen); RBC,URINE None Seen /HPF (0-5); SQUAMOUS EPITHELIAL CELL,UR FEW Squamous (<= Few); WBC,URINE 0-3 /HPF (0-5)
== END 2023-12-08 23:59 | disposition home or self-care (01) ==
LOC: LAB.WC 08:00
PROVIDERS: ATTEND Obstetrics & Gynecology
DX: Z34.90 Encounter for supervision of normal pregnancy, unspecified, unspecified trimester (principal)
CPT/HCPCS: 81001; 87086

== ENCOUNTER 2023-12-21 18:53 | Outpatient (CLI) | payer BC ==
[2023-12-21 19:24] LABS: BASOPHILS % (AUTO) 0.3 %; EOSINOPHILS # (AUTO) 0.1 10^3/uL (0.0-0.7); EOSINOPHILS % (AUTO) 0.8 %; HCT - HEMATOCRIT 38.4 % (37.0-47.0); HGB - HEMOGLOBIN 12.8 g/dL (12.0-16.0); LYMPHOCYTES # (AUTO) 2.7 10^3/uL (1.5-3.5); LYMPHOCYTES % (AUTO) 26.8 %; MEAN CORPUSCULAR HEMOGLOBIN 29.6 pg (27.0-31.0); MEAN CORPUSCULAR HGB CONC 33.3 g/dL (32.0-36.0); MEAN CORPUSCULAR VOLUME 88.9 fL (81.0-99.0); MEAN PLATELET VOLUME 9.7 fL (7.9-10.8); MONOCYTES # (AUTO) 0.7 10^3/uL (0.0-1.0); MONOCYTES % (AUTO) 7.1 %; NEUTROPHILS # (AUTO) 6.4 10^3/uL (1.5-6.6); NEUTROPHILS % (AUTO) 64.6 %; PLT - PLATELET COUNT 299 10^3/uL (130-450); RED BLOOD COUNT 4.32 10^6/uL (4.20-5.40); RED CELL DISTRIBUTION WIDTH 12.1 % (12.0-15.0); WHITE BLOOD COUNT 9.9 x10^3/uL (4.8-10.8)
--- NOTE | 2023-12-21 22:12 | Ultrasound Report ---
PROCEDURE: OB 1st Trimester w/TV INDICATIONS: POSITIVE TEST OUTSIDE/PRIOR DATING DATA: Last menstrual period (LMP): 10/13/2023. LMP-based estimated date of delivery (JHON): 07/19/2023. First dating scan (date and location): 12/21/2023. Estimated date of delivery (JHON) from first dating scan: 08/02/2024. TECHNIQUE: Real-time scanning was performed of the fetus and maternal pelvic organs, with image documentation. Endovaginal scanning was also performed to better visualize the fetus and maternal ovaries. COMPARISON: None. FINDINGS: Arcuate uterus. Intrauterine gestational sac present in right uterine horn. A yolk sac is a lso seen. Embryo: Penn-rump length measures 1.5 cm. Estimated gestational age is 7 weeks, 6 days. Heart rate: 1 64 bpm bpm. Other: Small subchorionic hemorrhage measures 3.9 x 1.3 x 2.2 cm in size is seen. Measurement variability in dating: +/- 4 weeks by LMP, +/- 7 days by mean sac diameter (use before 6 weeks gestation if crown-rump length not able to be measured), +/- 5 days by crown-rump length (6-12 weeks gestation). Maternal organs: Ovaries appear within normal limits. IMPRESSION: 1. Arcuate uterus with single intrauterine gestational sac within right uterine horn. Fetus and yolk sac is seen. Estimated gestational age based on current study in 7 weeks, 6 days. heart rate is 164 bpm. 2. Small subchorionic hematoma as above. Reviewed by: Anoop Gandhi MD on 12/21/2023 10:11 PM PDT Approved by: Anoop Gandhi MD on 12/21/2023 10:11 PM PDT Station ID: [id number]
[2023-12-23 03:11] LABS: HBsAG SCREEN Negative (Negative)
[2023-12-23 05:14] LABS: HIV SCREEN 4TH GENERATION Non Reactive (Non Reactive)
[2023-12-23 07:10] LABS: RPR Non Reactive (Non Reactive)
[2023-12-23 09:11] LABS: VARICELLA-ZOSTER AB IGG <135 index (Immune >165)
== END 2023-12-21 18:54 | disposition home or self-care (01) ==
LOC: DI 18:53
PROVIDERS: ATTEND Obstetrics & Gynecology
DX: O99.351 Diseases of the nervous system complicating pregnancy, first trimester (principal); G40.B09 Juvenile myoclonic epilepsy, not intractable, without status epilepticus; O20.8 Other hemorrhage in early pregnancy; Z3A.01 Less than 8 weeks gestation of pregnancy
CPT/HCPCS: 36415; 80177; 81001; 85025; 86592; 86762; 86787; 86850; 86900; 86901; 87086; 87340; 87389

== ENCOUNTER 2023-12-23 08:00 | Outpatient (CLI) | payer BC ==
[2023-12-24 19:06] LABS: CHLAMYDIA TRACHOMATIS DNA NEGATIVE (NEGATIVE); NEISSERIA GONORRHOEAE DNA NEGATIVE (NEGATIVE); TRICHOMONAS VAGINALIS DNA NEGATIVE (NEGATIVE)
== END 2023-12-23 23:59 | disposition home or self-care (01) ==
LOC: LAB.WC 08:00
PROVIDERS: ATTEND Nurse Practitioner
DX: Z34.90 Encounter for supervision of normal pregnancy, unspecified, unspecified trimester (principal)
CPT/HCPCS: 87491; 87591; 87661

== ENCOUNTER 2024-02-03 09:12 | Outpatient (CLI) | payer BC ==
[2024-02-03 20:51] LABS: CHLAMYDIA TRACHOMATIS DNA NEGATIVE (NEGATIVE); NEISSERIA GONORRHOEAE DNA NEGATIVE (NEGATIVE)
[2024-02-03 23:00] LABS: BACTERIAL VAGINOSIS DNA NEGATIVE (NEGATIVE); CANDIDA GLABRATA DNA NEGATIVE (NEGATIVE); CANDIDA GROUP DNA NEGATIVE (NEGATIVE); CANDIDA KRUSEI DNA NEGATIVE (NEGATIVE); TRICHOMONAS VAGINALIS DNA NEGATIVE (NEGATIVE)
== END 2024-02-03 09:13 | disposition home or self-care (01) ==
LOC: LAB 09:12
PROVIDERS: ATTEND Obstetrics & Gynecology
DX: N93.9 Abnormal uterine and vaginal bleeding, unspecified (principal); G40.B09 Juvenile myoclonic epilepsy, not intractable, without status epilepticus
CPT/HCPCS: 80177; 81514; 87491; 87591; 87661

== ENCOUNTER 2024-02-22 15:04 | Outpatient (CLI) | payer BC | END 2024-02-22 15:05 | disposition home or self-care (01) | LOC: LAB 15:04 | PROVIDERS: ATTEND Nurse Practitioner | DX: O09.892 Supervision of other high risk pregnancies, second trimester (principal) | CPT/HCPCS: 36415; 81511 ==

== ENCOUNTER 2024-07-13 05:46 | Inpatient (IN) ==
[2024-07-13 06:24] LABS: BASOPHILS # (AUTO) 0.1 10^3/uL (0.0-0.1); BASOPHILS % (AUTO) 0.4 %; EOSINOPHILS # (AUTO) 0.1 10^3/uL (0.0-0.7); EOSINOPHILS % (AUTO) 0.6 %; HGB - HEMOGLOBIN 11.8 g/dL (12.0-16.0); LYMPHOCYTES # (AUTO) 2.1 10^3/uL (1.5-3.5); LYMPHOCYTES % (AUTO) 16.1 %; MEAN CORPUSCULAR HEMOGLOBIN 28.8 pg (27.0-31.0); MEAN CORPUSCULAR HGB CONC 32.8 g/dL (32.0-36.0); MEAN CORPUSCULAR VOLUME 87.8 fL (81.0-99.0); MEAN PLATELET VOLUME 10.4 fL (7.9-10.8); NEUTROPHILS # (AUTO) 9.3 10^3/uL (1.5-6.6); NEUTROPHILS % (AUTO) 73.6 %; PLT - PLATELET COUNT 276 10^3/uL (130-450); RED CELL DISTRIBUTION WIDTH 13.2 % (12.0-15.0); WHITE BLOOD COUNT 12.7 x10^3/uL (4.8-10.8)
[2024-07-13] MEDS: LACTATED RINGERS 1,000 ML IV SCH (06:49)
[2024-07-13] MEDS ORDERED: ONDANSETRON 4 MG/2 ML VIAL ONE (06:55)
[2024-07-13] MEDS ORDERED: PHENYLEPHRINE HCL 0.5 MG/5 ML AMPULE ONE (06:55)
[2024-07-13] MEDS ORDERED: CARBOPROST TROMETHAMINE 250 MCG/ML VIAL IM ONE (07:17)
[2024-07-13] MEDS ORDERED: METHYLERGONOVINE 0.2 MG/ML VIAL ONE (07:17)
[2024-07-13] MEDS ORDERED: miSOPROStoL 200 MCG TABLET ONE (07:17)
[2024-07-13] MEDS ORDERED: OXYTOCIN/SODIUM CHLORIDE 500 ML IV ONE ×2 (07:20→09:31)
--- NOTE | 2024-07-13 07:26 | ANESTHESIA PROCEDURE NOTE ---
Pre-Anesthesia VS, & Labs Diagnosis Surgical Diagnosis:: placenta previan (complete) Procedure Procedure: c/s Vitals Vital Signs: Temp Pulse Resp BP 37.3 C 113 H 18 122/75 07/13/24 06:01 07/13/24 06:01 07/13/24 06:01 07/13/24 06:01 NPO NPO: >8 hours Last Fluid Intake: sips with Keppra Is Patient ?: Yes Lab Results Current Lab Results: Laboratory Tests 07/13/24 06:12: WBC 12.7 H, RBC 4.10 L, Hgb 11.8 L, Hct 36.0 L, MCV 87.8, MCH 28.8, MCHC 32.8, RDW 13.2, Plt Count 276, MPV 10.4, Neut # (Auto) 9.3 H, Lymph # (Auto) 2.1, [place] # (Auto) 1.0, Eos # (Auto) 0.1, Baso # (Auto) 0.1, Absolute Nucleated RBC 0.00, Nucleated RBC % 0.0 Lab results reviewed: Yes 07/13/24 06:12 Meds/Allgy Home Medications Ambulatory Orders Medication Instructions Recorded Confirmed folic acid 1 mg tablet 1 mg PO QDAY 03/17/24 07/11/24 magnesium glycinate mg PO 03/17/24 07/11/24 omega-3 fatty acids 500 mg capsule 500 mg PO QDAY 03/17/24 07/11/24 levetiracetam 1,000 mg tablet 1,000 mg PO BID 03/19/24 07/11/24 (Keppra) Allergies Allergies Allergy/AdvReac Type Severity Reaction Status Date / Time nitrofurantoin (From Allergy Severe migraine Verified 06/16/24 09:05 Macrobid) [facility] Medical History Medical History (Updated 07/13/24 @ 07:29 by Danis Orr MD) Placenta previa antepartum in second trimester 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18, no subsequent episodes Family History Family History (Updated 04/07/24 @ 10:22 by Juany Genao MA) Mother High blood pressure Paternal grandfather Prostate cancer Maternal grandfather Bladder cancer Social History Social History Smoking Status: Former smoker Do you dip or chew tobacco?: No Patient requests smoking cessation consult: No Initiate information on smoking cessation: No Anesthesia Exam (Expanded) Exam General: Alert, Oriented x3 and Cooperative Dental: WNL Mouth Openin Fingerbreadth Neck Mobility: Normal Mallampati classification: II Thyromental Distance: 4-6 cm Respiratory: Lungs clear and Normal breath sounds Cardiovascular: Regular rate Neurological: Normal speech Mental/Cognitive Status: Alert/Oriented X3 and Normal for patient Plan Plan Anesthesia Type: Spinal and Transverse Abdominis Plane (TAP) Block Regional Block: Per Surgeon's request for Post Op pain control Consent for Procedure(s) Verified and Reviewed: Yes Code Status: Attempt Resuscitation ASA Classification ASA classification: 2-Mild systemic disease Is this case an emergency?: No
--- NOTE | 2024-07-13 07:27 | HISTORY & PHYSICAL EXAMINATION ---
Admit History Smoking Status: Former smoker Other Maternal History Other Maternal History: 39-year-old G4, P1 at 37 weeks 1 day gestation presented a for planned section for complete placenta previa. This will be her primary section.. She has good movement. Denies loss of fluid. No NARANJO/BV or RUQP. No vaginal bleeding. Denies nausea and vomiting. Denies urinary urgency or dysuria. All other symptoms reviewed and were negative except per HPI. history COMPLETE PLACENTA PREVIA -MFM referral initiated - records pending -Scheduled delivery at 37wks Hx epilepsy: -no seizure since age 18 -Keppra (Levetiracetam) 1000mg, repeat labs q 4 weeks AMA -declines NSTs Pre- Weight:152.4 BMI: 23.9 Blood type: O+ Rh: positive Antibody: Negative CBC: PLT 299 HCT 38.4 HGB 12.8 RUB: Immune VZV: non-immune HBsAg: negative HepC: RPR/AB-EIA: NR HIV: NR PAP:03/07/2018 - normal GC/CT: 12/22 Negative HSV: denies in self and partner Genetic testing: QUAD-neg Covid: declines Flu: declines FAS: 03/27/2024 Placenta: Posterior; COMPLETE PREVIA Cord: 3VC ZAY: WNL EFW: 500g; 79%tile 50gm OGCT: 116 3HR GTT: TDAP: 05/25/24 given mls Breast Pump: declines 3rd trimester H/H PLT 3rd trimester RPR GBS: Delivery plan: Scheduled at 37wks secondary to complete placenta previa (previous labor at [facility] with transfer to [facility] @10cm, delivered by [facility] [place]) Contraception: HPI Current : Current EDU 08/02/24 Gestation 37 Weeks and 1 Days Para 1 Vital Signs Temperature 37.3 C 07/13/24 06:01 Pulse Rate 113 H 07/13/24 06:01 Respiratory Rate 18 07/13/24 06:01 Blood Pressure 122/75 07/13/24 06:01 NST Procedure NST Procedure: NST Procedure Start Date 07/13/24 Start Time 06:00 Stop Time 06:20 Vibroacoustic Stimulation Used No Patient States Movement Yes Meds/Allgy Home Medications Ambulatory Orders Medication Instructions Recorded Confirmed folic acid 1 mg tablet 1 mg PO QDAY 03/17/24 07/11/24 magnesium glycinate mg PO 03/17/24 07/11/24 omega-3 fatty acids 500 mg capsule 500 mg PO QDAY 03/17/24 07/11/24 levetiracetam 1,000 mg tablet 1,000 mg PO BID 03/19/24 07/11/24 (Keppra) Allergies Allergies Allergy/AdvReac Type Severity Reaction Status Date / Time nitrofurantoin (From Allergy Severe migraine Verified 06/16/24 09:05 Macrobid) [facility] Medical History Medical History (Updated 07/13/24 @ 07:29 by Danis Orr MD) Placenta previa antepartum in second trimester 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18, no subsequent episodes Family History Family History (Updated 04/07/24 @ 10:22 by Juany Genao MA) Mother High blood pressure Paternal grandfather Prostate cancer Maternal grandfather Bladder cancer Social History Social History Smoking Status: Former smoker Do you dip or chew tobacco?: No Patient requests smoking cessation consult: No Initiate information on smoking cessation: No Review of Systems Status of ROS: 10 or more systems reviewed and unremarkable except as noted in history and below Physical Abdominal Exam Vital Signs: Temp Pulse Resp BP 37.3 C 113 H 18 122/75 07/13/24 06:01 07/13/24 06:01 07/13/24 06:01 07/13/24 06:01 Other Notes Labor Progress Note/Additional Text: General: Alert, oriented, no acute distress Head: Normal cephalic atraumatic Eyes: PERRLA, extraocular motions intact. Respiratory: Normal rate of respiration. No accessory muscle use, normal respiratory effort. Cardiovascular: Regular rate and rhythm Abdomen: Gravid, nontender, nondistended Extremities: Normal range of motion Neuro: Oriented x3. Normal movements Psych: Appropriate mood and affect. Normal judgment and insight FHT 150 beats per minute baseline, moderate variability, accelerations present, no decelerations. Reactive NST [place]: Irritable] Plan for Labor Plan For Labor I expect patient to be DC'd or transferred within 96 hours.: Yes Conclusion/Plan Problem List (1) Placenta previa in third trimester: Plan: Complete percent of previa. Plan for primary low-transverse section. Patient counseled previously. section was recommended. Risks, benefits and alternatives were discussed including but not limited to infection, bleeding that may require blood products or hysterectomy for life saving measures, injury to surrounding organs including but not limited to bowel, bladder, ureters, tubes and ovaries and/or the baby. Should injury occur it could require longer/additional surgery to repair. The patient stated understanding and desired to proceed. All questions were answered posed by patient. Type and cross for 1 unit of blood, stay 1 ahead. (2) 37 weeks gestation of : (3) Supervision of other high-risk : (4) Epilepsy affecting : Plan: No current issues. Lab Results Lab results reviewed: Yes 07/13/24 06:12
[2024-07-13] MEDS ORDERED: ceFAZolin 1 GM VIAL ONE (07:48)
[2024-07-13] MEDS ORDERED: LACTATED RINGERS 1,000 ML IV SCH ×3 (08:00→11:00)
[2024-07-13] MEDS ORDERED: HYDROmorphone 0.5 MG/0.5 ML SYRINGE IVP PRN (08:25)
[2024-07-13] MEDS ORDERED: NALOXONE 0.4 MG/ML VIAL IVP PRN (08:25)
[2024-07-13] MEDS ORDERED: MORPHINE 2 MG/ML CARPUJECT IVP PRN (08:25)
[2024-07-13] MEDS ORDERED: ePHEDrine 50 MG/ML VIAL IVP PRN (08:25)
[2024-07-13] MEDS ORDERED: fentaNYL 100 MCG/2 ML VIAL IVP PRN (08:25)
[2024-07-13] MEDS ORDERED: METOCLOPRAMIDE 10 MG/2 ML VIAL IVP PRN (08:25)
[2024-07-13] MEDS ORDERED: ATROPINE ABBOJECT 1 MG/10 ML SYRINGE IVP PRN (08:25)
[2024-07-13] MEDS ORDERED: ONDANSETRON 4 MG/2 ML VIAL IVP PRN (08:25)
[2024-07-13] MEDS ORDERED: DEXAMETHASONE 10 MG/ML VIAL ONE (08:54)
[2024-07-13] MEDS ORDERED: ROPIVACAINE 0.5% PF 20 ML VIAL ONE (08:54)
[2024-07-13] MEDS ORDERED: SODIUM CHLORIDE 0.9% 10 ML VIAL IVP ONE (08:54)
[2024-07-13] MEDS ORDERED: KETOROLAC 30 MG/ML VIAL ONE (09:19)
[2024-07-13] MEDS: ceFAZolin (2G) 2 GM in SODIUM CHLORIDE 0.9% MINIBAG 100 ML IV ONE (09:49)
--- NOTE | 2024-07-13 10:07 | ANESTHESIA POST OP EVALUATION ---
Anesthesia Post Eval Post Anesthesia Eval Vitals: Last Vital Signs Temp 36.6 C 07/13/24 10:01 Pulse 86 07/13/24 10:01 Resp 18 07/13/24 10:01 BP 113/66 07/13/24 09:50 Pulse Ox 100 07/13/24 10:01 CV Function Including HR & BP: Stable Pain Control: Satisfactory Nausea & Vomiting: Negative Mental Status: Baseline Respiratory Status: Airway Patent Hydration Status: Satisfactory Anesthesia Complications: None
[2024-07-13] MEDS ORDERED: ONDANSETRON ODT 4 MG TABLET TL PRN (10:22)
[2024-07-13] MEDS ORDERED: OXYTOCIN/SODIUM CHLORIDE 500 ML IV PRN (10:22)
--- NOTE | 2024-07-13 10:22 | OPERATIVE REPORT ---
Operative Report General Admit Date: 07/13/24 Procedure Data: Operation Date: 07/13/24 07:30 Proposed Procedures p Section(Not Applicable) - Danis Orr MD Actual Procedures p Section(Not Applicable) - Danis Orr MD Anesthesia Type Spinal Case Staff Anesthesia Provider: Kwasi Ponce Anesthesia Provider: Amalia Braun Assisting Provider: Brooke Pacheco Case Times Into Recovery: 07/13/24 09:36 Procedure Start: 07/13/24 08:37 Procedure End: 07/13/24 09:20 Time out: 07/13/24 08:35 Preop diagnosis Placenta previa 37 weeks gestation Postop diagnosis Same Delivered live william Status post primary low-transverse section Procedure Note Intake, IV Amount (ml): 1,200 Estimated Blood Loss (ml): 800 Output, Urine Amount (ml): 200 Pathology: None Findings: Normal-appearing uterus, tubes, ovaries. Healthy liveborn with Apgars of 8/9 Complications: None Other Other Information/Narrative: section was recommended. Risks, benefits and alternatives were discussed including but not limited to infection, bleeding that may require blood products or hysterectomy for life saving measures, injury to surrounding organs including but not limited to bowel, bladder, ureters, tubes and ovaries and/or the baby. Should injury occur it could require longer/additional surgery to repair. The patient stated understanding and desired to proceed. All questions were answered posed by patient. We did cross 1 unit of blood prior to the procedure. Prior to being taken to the OR, 2 grams of cefazolin IV was administered. The patient was taken to the operating room where regional anesthesia was found to be adequate. She was then prepared and draped in the usual sterile fashion in the dorsal supine position with a leftward tilt displacing the uterus. Holl[place] was draining to gravity. SCDs were on bilateral lower extremities. Time out was taken. A pfannenstiel skin incision was then made with the scalpel and carried through to the underlying layer of fascia. The fascia was incised in the midline and the incision extended laterally with the Barton scissors. The superior aspect of the facial incision was then grasped with the Chad clamps, elevated and the underlying rectus muscles dissected off sharply. Attention was then turned to the inferior aspect of this incision which in a similar fashion was grasped, elevated with the Chad clamps and the rectus muscle dissected off sharply. The rectus muscles were in the midline. The peritoneum identified, grasped with the pick-ups and entered sharply with the Metzenbaum scissors. The peritoneal incision was then extended superiorly and inferiorly with good visualization of the bladder. The bladder blade was inserted. The vesicouterine peritoneum was identified, grasped with the pick-ups, and entered sharply with Metzenbaum scissors. This incision was then extended laterally and the bladder flap created digitally. The bladder blade was reinserted. The lower uterine segment was identified and incised in a transverse fashion with the scalpel. The uterine incision was then extended bluntly laterally. The placenta was noted on the anterior and cervical edge. The bladder blade was removed. We quickly delivered the head at the same time artificial rupture of membranes demonstrated clear fluid. The infants head delivered atraumatically. The anterior shoulders were delivered followed by the posterior shoulders then the remainder of the body. The infants mouth and nose were bulb suctioned. The umbilical cord was clamped times two and cut. The infant was handed to the pediatric team. The placenta was removed with gentle traction. Oxytocin was added to the IV fluid and was allowed to run freely. The uterus was exteriorized and cleared of all clots and debris. The uterine incision was inspected and found to be without any extensions and was repaired with 0 Vicryl in a running, locked fashion. We did place 600 mg of misoprostol intrauterine due to possible hemorrhage due to to the location of the placenta and decreased contraction of the lower uterine segment anticipated. A second imbricating layer was performed. 2 additional [id number] stitches were needed to have hemostasis of the serosal edge. Upon inspection, the repaired hysterotomy was found to be hemostatic. The uterus was firm and returned to the abdomen. The gutters were cleared of all clots and debris. The muscle layer was examined and found to be hemostatic. The fascia was reapproximated with 0 Vicryl in a running fashion. The subcutaneous tissue was closed with 2-0 Vicryl. The skin was closed in a subcuticular fashion with 4-0 Monocryl. The patient tolerated the procedure well. Sponge, lap and needle counts were correct times three. The patient was taken to the recovery room in stable condition. I appreciate the assistance of Brooke Junior, [employer] during this procedure, and the assistance in retraction, visualization, dissection, and overall assistance during the case were instrumental to the patient's wellbeing. APGARs: 8/9 weight: Pending
[2024-07-13] MEDS: ACETAMINOPHEN 500 MG TABLET PO ONE (11:23)
[2024-07-13] MEDS: oxyCODONE 5 MG TABLET PO PRN (11:23)
[2024-07-13] MEDS: KETOROLAC 30 MG/ML VIAL IVP SCH (14:53)
--- NOTE | 2024-07-13 15:40 | PHARMACY PROGRESS NOTE ---
Best Possible Medication History Admit Date and Time: 07/13/24 [id number] Home Medications Medication Instructions Recorded Confirmed Type folic acid 1 mg tablet 1 mg PO QDAY 03/17/24 07/13/24 History levetiracetam 500 mg tablet 1,000 mg PO BID 07/13/24 07/13/24 History Processed by: Pharmacy (Medication reconciliation completed by deliverer pharmacyJose Angel) Medications reviewed in ED?: No Medication History completed: Yes Patient Interview: Completed Secondary Source(s): Insurance records [facility] Statement: As the person ultimately responsible for medication therapy, providers are able to order a medication from an existing home medication list in [facility] via the "Reconcile Routine" prior to Confirmation of that medication by family support worker. Such practice is discouraged except when the physician, in their clinical judgment, deems that a medical need exists for a medication without regard to previous use.
[2024-07-13] MEDS: CITRIC ACID/SODIUM CITRATE 15 ML UDC PO ONE (15:42)
[2024-07-13] MEDS: ACETAMINOPHEN 500 MG TABLET PO SCH (19:00)
[2024-07-13 20:57] VITALS: O2SAT 98
[2024-07-14 06:01] LABS: BASOPHILS % (AUTO) 0.4 %; EOSINOPHILS % (AUTO) 0.4 %; HCT - HEMATOCRIT 30.2 % (37.0-47.0); LYMPHOCYTES % (AUTO) 15.5 %; MEAN CORPUSCULAR HEMOGLOBIN 29.4 pg (27.0-31.0); MEAN CORPUSCULAR HGB CONC 33.1 g/dL (32.0-36.0); MEAN CORPUSCULAR VOLUME 88.8 fL (81.0-99.0); MONOCYTES % (AUTO) 9.1 %; NEUTROPHILS % (AUTO) 73.7 %; PLT - PLATELET COUNT 246 10^3/uL (130-450); RED CELL DISTRIBUTION WIDTH 13.3 % (12.0-15.0); WHITE BLOOD COUNT 18.7 x10^3/uL (4.8-10.8)
[2024-07-14 06:10] LABS: ABNORMAL LYMPHS % (MANUAL) 0 %
[2024-07-14 06:32] LABS: BAND NEUTROPHILS % (MANUAL) 7 %; DIFFERENTIAL COMMENT MANUAL DIFFERENTIAL; LYMPHOCYTES % (MANUAL) 16 %; METAMYELOCYTES % (MANUAL) 2 %; MONOCYTES # (MANUAL) 0.4 10^3/uL (0.0-1.0); MYELOCYTES % (MANUAL) 2 %; NEUTROPHILS # (MANUAL) 14.6 10^3/uL (1.5-6.6); PLATELET ESTIMATE, MANUAL NORMAL (130-450,000) (NORMAL); PLATELET MORPHOLOGY NORMAL APPEARANCE (NORMAL); RBC MORPHOLOGY (MULTIPLE) NORMAL APPEARANCE (NORMAL); WBC MORPHOLOGY (MULTIPLE) 1+ TOXIC GRANULATION (NORMAL)
[2024-07-14] MEDS: SIMETHICONE CHEW 80 MG TABLET PO PRN (08:05)
--- NOTE | 2024-07-14 08:16 | PROVIDER PROGRESS NOTE ---
Subjective Subjective Subjective: Subjective Patient reports she is doing well. Lochia appropriate. Denies heavy bleeding. Ambulating. Pelvic and abdominal pain well-controlled. Tolerating oral intake. Diet: Regular. Voiding without difficulty. Passing flatus. Denies BM. Patient is bonding with baby in room Breast feeding going well. Denies feeling lightheaded, dizzy or excessively fatigued. Objective General: Alert, oriented, no apparent distress. Cardiovascular: Regular rate. Regular rhythm. Lungs: No increased work of breathing. Abdomen: Uterus firm. Below umbilicus. No guarding or rebound. Extremities: No pain on palpation. No cords palpated. Distal pulses intact. Incision: Clean, dry, and intact. Bandage removed today, Steri-Strips in place Current Medications Current Medications Current Medications: Current Medications Generic Name Dose Route Start Last Admin Trade Name Freq PRN Reason Stop Dose Admin Acetaminophen 1,000 mg 07/13/24 12:00 07/14/24 00:09 Acetaminophen 500 Mg Tablet PO 1,000 mg Q6HR YUMIKO Administration Docusate Sodium 100 mg 07/14/24 09:00 Docusate Sodium 100 Mg Capsule PO DAILY YUMIKO Oxytocin/Sodium Chloride 500 mls @ 999 mls/hr 07/13/24 10:22 Pitocin/Sodium Chloride IV PRN PRN POST- HEMORR PREVENTION Protocol 999 MILLIUNIT/MIN Lactated Ringer's 1,000 mls @ 100 mls/hr 07/13/24 11:00 Lr IV .Q10H YUMIKO Ibuprofen 600 mg 07/14/24 06:00 Ibuprofen 600 Mg Tablet PO Q6HR YUMIKO Ondansetron HCl 4 mg 07/13/24 10:22 Ondansetron Odt 4 Mg Tablet TL Q4HR PRN Nausea / Vomiting Oxycodone HCl 5 mg 07/13/24 10:22 07/14/24 08:05 Oxycodone 5 Mg Tablet PO 5 mg Q4HR PRN Administration Moderate Pain (Level 4-6) Simethicone 80 mg 07/13/24 10:22 07/14/24 08:05 Simethicone Chew 80 Mg Tablet PO 80 mg TID PRN Administration Gas Objective Vital Signs/Intake & Output Vital Signs: Vital Signs x48h Temp Pulse Resp BP Pulse Ox 07/14/24 06:30 36.4 C L 69 16 113/65 98 Intake & Output: Intake & Output 02/04/25 02/05/25 02/06/25 02/07/25 23:59 23:59 23:59 23:59 Intake Total 3161 / 3161 700 / 700 Output Total 4565 / 4565 1500 / 1500 Balance -1404 / -1404 -800 / -800 Weight (kg) 209 lb 9.6 oz Lab Results 07/14/24 05:48 Other Labs: Lab Results x24hrs 07/14/24 07/13/24 Range/Units 05:48 10:24 WBC 18.7 H (4.8-10.8) x10^3/uL RBC 3.40 L (4.20-5.40) 10^6/uL Hgb 10.0 L (12.0-16.0) g/dL Hct 30.2 L (37.0-47.0) % MCV 88.8 (81.0-99.0) fL MCH 29.4 (27.0-31.0) pg MCHC 33.1 (32.0-36.0) g/dL RDW 13.3 (12.0-15.0) % Plt Count 246 (130-450) 10^3/uL MPV 10.0 (7.9-10.8) fL Neut # (Auto) Not Reportable Lymph # (Auto) Not Reportable [place] # (Auto) Not Reportable Eos # (Auto) Not Reportable Baso # (Auto) Not Reportable Absolute Nucleated RBC Not Reportable Total Counted 100 Band Neuts % (Manual) 7 (0 - 10) % Abnorm Lymph % (Manual) 0 % Metamyelocytes % 2 H ( - 0) % Myelocytes % 2 H ( - 0) % Nucleated RBC % Not Reportable Neutrophils # (Manual) 14.6 H (1.5-6.6) 10^3/uL Lymphocytes # (Manual) 3.0 (1.5-3.5) 10^3/uL Monocytes # (Manual) 0.4 (0.0-1.0) 10^3/uL Eosinophils # (Manual) 0.0 (0-0.7) 10^3/uL Basophils # (Manual) 0.0 (0-0.1) 10^3/uL Differential Comment MANUAL DIFFERENTIAL WBC Morphology 1+ TOXIC GRANULATION (NORMAL) Platelet Estimate NORMAL (130-450,000) (NORMAL) Platelet Morphology NORMAL APPEARANCE (NORMAL) RBC Morph Micro Appear NORMAL APPEARANCE (NORMAL) POC Whole Bld Glucose 32 (70-100) mg/dL Assessment/Plan Problem List (1) Delivery by section: Impression: routine care. Incision intact. Continue breast-feeding support. Anticipate discharge tomorrow. (2) Delivery outcome of william infant: Qualifiers: outcome: live Qualified Code(s): Z37.0 - Single live (3) Epilepsy: Qualifiers: Epilepsy type: generalized idiopathic Intractability: not intractable Status epilepticus: without status epilepticus Qualified Code(s): G40.309 - Generalized idiopathic epilepsy and epileptic syndromes, not intractable, without status epilepticus
[2024-07-14] MEDS: IBUPROFEN 600 MG TABLET PO SCH (09:16)
[2024-07-14] MEDS: DOCUSATE SODIUM 100 MG CAPSULE PO SCH (09:16)
--- NOTE | 2024-07-15 09:33 | Discharge Summary ---
"Discharge Summary Admit Date: 07/13/24 Discharge Date: 07/15/24 Discharging Provider: Marita Garner MD Code Status: Attempt Resuscitation DIAGNOSES Admission Diagnoses: pregnacy at 37 weeks with placenta previa Discharge Diagnoses with Status of Each Condition: pregancy delivered by c section. no complications. HPI History of Present Illness: 39 yo with on admission at 37 weeks. Found to have placenta previa so admitted for primary c section at 37 weeks. Other issue is a seizure disorder managed well with Keppra. CONSULTS | PROCEDURES Procedures: Primary low transverse c section without complication HOSPITAL COURSE Hospital Course: admitted for c section which was performed without complication. EBL 800 cc. Baby boy [place]. post op course completely unremarkable. discharge home on POD #2. breast feeding going well. Measurements: Weight (kg):3320 g, 74 %ile for cGA Length (cm): 52 cm, 88 %ile for cGA OFC (cm): 34.5 cm, 69 %ile for cGA ALLERGIES Allergies Allergy/AdvReac Type Severity Reaction Status Date / Time nitrofurantoin (From Allergy Severe migraine Verified 06/16/24 09:05 Macrobid) MEDICATIONS Ambulatory Orders Medication Instructions Recorded Confirmed folic acid 1 mg tablet 1 mg PO QDAY 03/17/24 07/13/24 acetaminophen 325 mg capsule 650 mg (2 x 325 mg) PO Q4H PRN 07/15/24 pain #20 caps ibuprofen 600 mg tablet 600 mg PO Q6H PRN pain #30 tabs 07/15/24 levetiracetam 500 mg tablet 1,000 mg (2 x 500 mg) PO BID #120 07/15/24 (Keppra) tabs oxycodone 5 mg tablet 5 mg PO Q4H PRN pain #10 tabs 07/15/24 polyethylene glycol 3350 17 17 g PO BID PRN constipation 07/15/24 gram/dose oral powder (Miralax) #1,020 grams PHYSICAL EXAM AT DISCHARGE General Appearance: positive No acute distress and Alert Respiratory: positive No respiratory distress Cardiovascular: positive Regular rate & rhythm Abdomen: positive Non-tender and Other (wound healing well, steri strips in place.) Skin: positive Color nml Neurologic/Psychiatric: positive Oriented x3 LABS 07/14/24 05:48 FOLLOW UP Follow Up: in 1-2 weeks for PP care TIME SPENT Time Spent in Discharge (Minutes): 20 Discharge Plan Discharge Patient Disposition: [facility], Self Care Condition: Good Prescriptions: Continued ibuprofen 600 mg tablet 600 mg PO Q6H PRN (Reason: pain) Qty: 30 1RF acetaminophen 325 mg capsule 650 mg PO Q4H PRN (Reason: pain) Qty: 20 0RF polyethylene glycol 3350 [Miralax] 17 gram/dose powder 17 g PO BID PRN (Reason: constipation) Qty: 1020 1RF oxycodone 5 mg tablet 5 mg PO Q4H PRN (Reason: pain) Qty: 10 0RF levetiracetam [Keppra] 500 mg tablet 1,000 mg PO BID Qty: 120 0RF folic acid 1 mg tablet 1 mg PO QDAY Discontinued levetiracetam 500 mg tablet 1,000 mg PO BID Patient Comments: take 2 tablets by mouth TWICE A DAY Activity Restrictions/Additional Instructions: Pelvic rest for 6 weeks. no lifting over 20 pounds for 6 weeks. walking daily encouraged. shower fine. bath no for 2-4 weeks depending on bleeding. remove steri strips at 1 week if still there. AVoid constipation. Diet: Regular Health Concerns: to follow up with neurologist from [facility] on Wednesday for medication tapering plan. Assessment: doing well. ready for discharge. breast feeding going well. Print Language: Macedonian Patient Instructions: Breastfeed How To, Follow-up Care: Danis Orr MD [Provider Admit Priv/Credential] -"
[2024-07-15] MEDS: polyethylene glycoL 3350 17 GM PACKET PO PRN (09:41)
[2024-07-15] MEDS: VARICELLA VACCINE LIVE/PF 1,350 UNIT/0.5 ML VIAL SUBQ ONE (10:54)
[2024-07-15 12:56] VITALS: BP 119/74; TEMP 97.9
== END 2024-07-15 12:59 | disposition home or self-care (01) | DRG 787 ==
LOC: FBP 05:46
PROVIDERS: ADMIT Obstetrics & Gynecology; ATTEND Obstetrics & Gynecology
DX: Z79.899 Other long term (current) drug therapy; Z87.891 Personal history of nicotine dependence; G40.309 Generalized idiopathic epilepsy and epileptic syndromes, not intractable, without status epilepticus; Z3A.37 37 weeks gestation of pregnancy; Z37.0 Single live birth; O44.03 Complete placenta previa NOS or without hemorrhage, third trimester; O99.354 Diseases of the nervous system complicating childbirth